=== PATIENT | male | born 1950 | race Caucasian/White ===

== ENCOUNTER 2016-03-28 11:09 | Emergency (ER) | payer OTHER ==
--- NOTE | 2016-03-28 12:30 | EDPHY ---
H & P Stated Complaint: sore throat for 5 days Time Seen by Provider: 03/28/16 11:53 - Personal History Current Tetanus/Diphtheria Vaccine: Yes Current Tetanus Diphtheria and Acellular Pertussis (TDAP): Yes - Medical/Surgical History Hx Asthma: No Hx Chronic Respiratory Disease: No Hx Diabetes: No Hx Cardiac Disease: No Hx Renal Disease: No Hx Cirrhosis: No Hx Alcoholism: No Hx HIV/AIDS: No Hx Splenectomy or Spleen Trauma: No - Social History Smoking Status: Never smoked Constitutional: Initial Vital Signs Temperature (C) 36.9 C 03/28/16 11:12 Heart Rate 82 03/28/16 11:12 Respiratory Rate 14 03/28/16 11:12 Blood Pressure 146/84 H 03/28/16 11:12 O2 Sat (%) 95 03/28/16 11:12 O2 Delivery Mode Room Air Allergies/Adverse Reactions: NSAIDS (Non-Steroidal Anti-Inflamma [Nsaids] Allergy (Verified 06/24/10 08:15) Other-Enter Comments Penicillins Allergy (Verified 06/24/10 08:14) Rash Home Medications: Medication Instructions Recorded AZITHROMYCIN [Z-PACK] 250 mg PO DAILY #1 packet 03/28/16 HYDROcodone/HOMATROPINE HYCODA 1 tsp PO Q4-6PRN PRN #120 ml 03/28/16 [Hycodan Syrup (RX)] Medical Decision Making ED Course/Re-evaluation: CHIEF COMPLAINT: Sore throat, rhinorrhea. HISTORY OF PRESENT ILLNESS: The patient is a 65-year-old male who presents with sore throat and rhinorrhea for the past 5 days. He admits associated sinus pressure and dry cough. He denies fever, vomiting, diarrhea, or other complaints. He is concerned for rheumatic fever as his girlfriend suffered from this in her childhood. REVIEW OF SYSTEMS: A 10 point review of systems was performed and is negative with the exception of the elements mentioned in the history of present illness. PHYSICAL EXAM: HR, BP, O2 Sat, RR. Temp noted General Appearance: Alert, well hydrated, appropriate, and non-toxic appearing. Head: Atraumatic without scalp tenderness or obvious injury Eyes: Pupils equal, round, reactive to light and accommodation, EOMI, no trauma , no injection. Ears: Clear bilaterally, no perforation, normal landmarks Nose: Atraumatic, no rhinorrhea, clear. Throat: Mildly erythematous. No exudates, no lesions, normal tonsils, mucus membranes moist. Neck: Supple, 2+ carotid upstroke, nontender, no lymphadenopathy. Respiratory: No retractions, no distress, no wheezes, and no accessory muscle use. Lungs are clear to auscultation bilaterally. Cardiovascular: Regular rate and rhythm, no murmurs, rubs, or gallops. Bilateral carotid, radial, dorsalis pedis, and posterior tibial pulses intact. Good capillary refill all extremities. Gastrointestinal: Abdomen is soft, nontender, non-distended, no masses, no rebound, no guarding, no peritoneal signs. Musculoskeletal: Normal active ROM of all extremities, atraumatic. Neurological: Alert, appropriate, and interactive. The patient has normal DTRs and non-focal cranial nerves, motor, sensory, and cerebellar exam. Skin: No rashes, good turgor, no nodules on palpation. Past medical history:Denies. Past surgical history:Non-contributory. Family history:Non-contributory. Social history:Here alone. DIFFERENTIAL DIAGNOSIS: The differential diagnosis for the patient's symptoms included but was not limited to sinusitis, flu, strep, pneumonia, viral syndrome, meningitis, and sepsis. MEDICAL DECISION MAKING: Patient presents with 5 days of sore throat and rhinorrhea. His flu swab is negative. He does have mild erythema in his throat but no exudates and I have little concern for strep. He will be sent home with Azithromycin, Hycodan syrup , and primary care follow up. I answered all of his questions. He is comfortable with the plan. - Data Points Laboratory Results: 03/28/16 03/28/16 Unknown 11:10 Group A Strep Screen NEGATIVE (NEGATIVE) Group A Strep DNA Pending Departure - Departure Disposition: Home, Routine, Self-Care Clinical Impression: Sinusitis Qualifiers: Sinusitis location: unspecified location Chronicity: acute Recurrence: not specified as recurrent Qualifier Code: (J01.90) Acute sinusitis, unspecified Condition: Good Instructions: Sinusitis (ED) Additional Instructions: Take Azithromycin as prescribed. Use Hycodan as instructed. Follow up with your primary care provider in the next 2-3 days if symptoms are not resolving. Return to the emergency department if you experience serious worsening of condition. Referrals: Theron Khan MD [Primary Care Provider] - As per Instructions Prescriptions: HYDROcodone/HOMATROPINE HYCODA [Hycodan Syrup (RX)] 1 tsp PO Q4-6PRN PRN #120 ml PRN Reason: Cough, Moderate AZITHROMYCIN [Z-PACK] 250 mg PO DAILY #1 packet Report Scribed for: Gavino Waddell Report Scribed by: Vic Faulkner Date of Report: 03/28/16 Time of Report: 12:29
[2016-03-28 12:43] VITALS: BP 124/79; PULSE 80; RESP 16; TEMP 98.8; O2SAT 94
== END 2016-03-28 12:44 | disposition home or self-care (01) ==
DX: J01.90 Acute sinusitis, unspecified (principal)

== ENCOUNTER → 2017-07-21 | Outpatient (CLI) | payer OTHER | LOC: FIMAGING 15:45 | PROVIDERS: ATTEND Physician Assistant | DX: R22.32 Localized swelling, mass and lump, left upper limb (principal); M79.602 Pain in left arm ==

== ENCOUNTER → 2017-11-16 | Outpatient (CLI) | payer OTHER | LOC: FIMAGING 13:40 | PROVIDERS: ATTEND Family Medicine | DX: N62 Hypertrophy of breast (principal) ==

== ENCOUNTER → 2018-09-11 | Outpatient (CLI) | payer OTHER | LOC: FIMAGING 13:40 ==